=== PATIENT | male | born 1965 | race Caucasian/White ===

== ENCOUNTER 2023-08-20 08:29 | Outpatient (CLI) | payer BC | END 2023-08-20 08:30 | disposition home or self-care (01) | LOC: CSHMRI 08:29 | PROVIDERS: ATTEND Family Medicine | DX: M54.2 Cervicalgia (principal); M47.812 Spondylosis without myelopathy or radiculopathy, cervical region | CPT/HCPCS: 72141 ==

== ENCOUNTER 2023-08-27 07:02 | Day surgery (SDC) | payer BC ==
[2023-08-26 09:14] VITALS: BMI 27.1
[2023-08-27] MEDS ORDERED: fentaNYL 50 mcg/mL 1 mL Vial ONE (09:20)
== END 2023-08-27 10:14 | disposition home or self-care (01) ==
LOC: CSHSDC 07:02
PROVIDERS: ATTEND Internal Medicine Gastroenterology
PROC: 0DB58ZX Excision of Esophagus, Via Natural or Artificial Opening Endoscopic, Diagnostic (ICD-10-PCS; principal; 2023-08-27)
PROC: 0D750ZZ Dilation of Esophagus, Open Approach (ICD-10-PCS; principal; 2023-08-27)
DX: K22.2 Esophageal obstruction (principal); K29.80 Duodenitis without bleeding; K21.00 Gastro-esophageal reflux disease with esophagitis, without bleeding; E11.9 Type 2 diabetes mellitus without complications; I10 Essential (primary) hypertension; I25.10 Atherosclerotic heart disease of native coronary artery without angina pectoris; M19.90 Unspecified osteoarthritis, unspecified site; F17.290 Nicotine dependence, other tobacco product, uncomplicated; Z79.899 Other long term (current) drug therapy; Z95.1 Presence of aortocoronary bypass graft; Z98.890 Other specified postprocedural states
CPT/HCPCS: 36416; 88305; J3010